=== PATIENT | male | born 2000 | race Caucasian/White ===

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

== ENCOUNTER → 2022-12-01 | Outpatient (CLI) | payer OTHER ==
--- NOTE | 2022-12-01 11:01 | XR ---
EXAMINATION TYPE: XR wrist complete LT DATE OF EXAM: 12/01/2022 COMPARISON: None HISTORY: Fall pain TECHNIQUE: 4 view left wrist FINDINGS: No acute fractures or dislocations are evident. Alignment is preserved. Soft tissues are un remarkable. Joint spaces are preserved. If there is pain at the anatomic snuff box, nuclear medicine bone scan could be performed for additio nal evaluation. Follow up exams can be performed 7-10 days from acute trauma for continued pain. IMPRESSION: 1. No acute osseous abnormality left wrist
--- NOTE | 2022-12-01 11:03 | XR ---
EXAMINATION TYPE: XR forearm LT DATE OF EXAM: 12/01/2022 COMPARISON: HISTORY: Fall, pain TECHNIQUE: 2 view left forearm FINDINGS: No acute fracture or dislocation is evident. Joint spaces appear preserved. Anterior fat pa d is normal. Soft tissues are unremarkable. Follow up exams can be performed in 7-10 days acute trauma for continued pain. IMPRESSION: 1. No acute osseous abnormality left forearm.
== END | disposition home or self-care (01) ==
LOC: RADXRMAIN 10:02
PROVIDERS: ATTEND Emergency Medicine
DX: M79.632 Pain in left forearm (principal); M25.532 Pain in left wrist

== ENCOUNTER 2023-10-17 16:16 | Emergency (ER) | payer BC, OTHER ==
[2023-10-17 16:27] VITALS: TEMP 98.2
--- NOTE | 2023-10-17 16:44 | ED ---
SOB HPI - General Chief Complaint: Shortness of Breath Stated Complaint: Covid +,Confusion,Dizziness Time Seen by Provider: 10/17/23 16:28 Source: patient, RN notes reviewed Mode of arrival: wheelchair Limitations: no limitations - History of Present Illness Initial Comments: This is a 23-year-old male who presents to the emergency department for concerns of COVID. States that he had a positive COVID test at home 2 days ago. Reports feeling short of breath, dizzy, and weak. Also states that he has body aches, a cough, and his hands feel numb. He is vaccinated against COVID, however he has not yet been infected with it. Denies any hx of asthma or smoking. Unsure of sick contacts. MD Complaint: shortness of breath - Related Data Previous Rx's Medication Instructions Recorded Albuterol Sulfate [Albuterol 1 - 2 puff PO Q4-6H PRN #8.5 gm 10/17/23 Sulfate Hfa] Benzonatate [Tessalon Perle] 200 mg PO TID PRN #30 capsule 10/17/23 Naproxen Sodium 550 mg PO BID PRN #30 tablet 10/17/23 Nirmatrelvir/Ritonavir [Paxlovid 1 pack PO BID #30 tab 10/17/23 300-100 mg Dose Pack] Ondansetron Odt [Zofran Odt] 4 mg PO Q8HR PRN #20 tab 10/17/23 Allergies Allergy/AdvReac Type Severity Reaction Status Date / Time No Known Allergies Allergy Verified 10/17/23 16:23 Review of Systems ROS Statement: Those systems with pertinent positive or pertinent negative responses have been documented in the HPI. ROS Other: All systems not noted in ROS Statement are negative. Past Medical History Additional Past Medical History / Comment(s): Suicidal in mar 2023 Past Surgical History: Hernia Repair Additional Past Surgical History / Comment(s): Hernia repair at 30 days old Past Psychological History: Depression Smoking Status: Never smoker Past Alcohol Use History: None Reported Past Drug Use History: None Reported General Exam Limitations: no limitations General appearance: alert, in no apparent distress Head exam: Present: atraumatic, normocephalic, normal inspection Respiratory exam: Present: normal lung sounds bilaterally. Absent: respiratory distress, wheezes, rales, rhonchi, stridor Cardiovascular Exam: Present: regular rate, normal rhythm, normal heart sounds. Absent: systolic murmur, diastolic murmur, rubs, gallop, clicks Neurological exam: Present: alert, oriented X3, CN II-XII intact Psychiatric exam: Present: normal affect, normal mood Skin exam: Present: warm, dry, intact, normal color. Absent: rash Course Vital Signs 10/17/23 10/17/23 16:24 18:59 Temperature 98.2 F Pulse Rate 68 70 Respiratory 22 16 Rate Blood Pressure 111/76 106/61 O2 Sat by Pulse 100 99 Oximetry Medical Decision Making - Medical Decision Making This is a 23 year old male who presents to the emergency department for dizziness, shortness of breath, and coughing. Was pt. sent in by a medical professional or institution? @ -No Did you speak to anyone other than the patient for history? @ -No Did you review nursing and triage notes? @ -Yes, and I agree, it is accurate with regards to the patient's symptoms. Were old charts reviewed? @ -No Differential Diagnosis? @ -Differential Dyspnea: Coronary syndrome, arrhythmia, tamponade, asthma, COPD, pulmonary embolism, pneumonia, pneumothorax, pulmonary effusion, anaphylaxis, diabetic ketoacidosis, flailed chest, pulmonary contusion, diaphragmatic rupture, anemia, neuromuscular, this is not meant to be an all-inclusive list. EKG interpreted by me (3pts min.)? @ -EKG interpreted by me demonstrating the following: Sinus rhythm. Ventricular rate 65 bpm, OH interval 146 ms, QRS duration 97 ms, QTc 399 ms. X-rays interpreted by me (1pt min.)? @ -Chest x-ray obtained, my interpretation identifies no localized consolidations or infiltrates. CT interpreted by me (1pt min.)? @ -Not obtained U/S interpreted by me (1pt. min.)? @ -Not obtained What testing was considered but not performed? (CT, X-rays, U/S, labs)? Why? @ -None What meds were considered but not given? Why? @ -None Did you discuss the management of the patient with other professionals? @ -No Did you reconcile home meds? @ -No Was smoking cessation discussed for >3mins.? @ -No Was critical care preformed (if so, how long)? @ -No Were there social determinants of health that impacted care today? How? (Homelessness, low income, unemployed, alcoholism, drug addiction, transportation, low edu. Level, literacy, decrease access to med. care, half-way, rehab)? @ -No Was there de-escalation of care discussed even if they declined? (Discuss DNR or withdrawal of care, Hospice)? @ -No What co-morbidities impacted this encounter? (DM, HTN, Smoking, COPD, CAD, Cancer, CVA, Hep., AIDS, mental health diagnosis, sleep apnea, morbid obesity)? @ -None Was patient admitted / discharged? @ -Discharged. Lab work demonstrates hypokalemia with a potassium of 3.2 and was otherwise unremarkable. Patient is positive for COVID-19. Chest x-ray reveals no acute process. 40 mEq of K-Dur administered. He was also given IV fluids, Toradol, Decadron, and Zofran with improvement in symptoms. Discussed the option of antiviral treatment with the patient and he requested to proceed. He was given a prescription for Paxlovid along with naproxen, Zofran, Tessalon Perles, and an albuterol inhaler for symptomatic management. Advised getting plenty of rest and drinking plenty of fluids. Patient discharged home in stable condition. Undiagnosed new problem with uncertain prognosis? @ -None Drug Therapy requiring intensive monitoring for toxicity (Heparin, Nitro, Insulin, Cardizem)? @ -None Were any procedures done? @ -None Diagnosis/symptom? @ -COVID-19, hypokalemia Acute, or Chronic, or Acute on Chronic? @ -Acute Uncomplicated (without systemic symptoms) or Complicated (systemic symptoms)? @ -Uncomplicated Side effects of treatment? @ -None Exacerbation, Progression, or Severe Exacerbation] @ -Not applicable Poses a threat to life or bodily function? @ -No Return precautions reviewed in depth, the patient is instructed to return to the emergency department with any new, worsening, or concerning symptoms. Patient verbalized understanding. This case was discussed in detail with the attending ED physician, Dr. Ambrocio. Presentation, findings, and treatment plan discussed in detail as well. - Lab Data Result diagrams: 10/17/23 16:35 10/17/23 16:35 Lab Results 10/17/23 10/17/23 10/17/23 Range/Units 16:35 16:35 16:35 WBC 5.2 (3.8-10.6) k/uL RBC 4.20 L (4.30-5.90) m/uL Hgb 13.5 (13.0-17.5) gm/dL Hct 38.9 L (39.0-53.0) % MCV 92.7 (80.0-100.0) fL MCH 32.2 (25.0-35.0) pg MCHC 34.7 (31.0-37.0) g/dL RDW 11.4 L (11.5-15.5) % Plt Count 240 (150-450) k/uL MPV 8.3 Neutrophils % 59 % Lymphocytes % 29 % Monocytes % 9 % Eosinophils % 1 % Basophils % 1 % Neutrophils # 3.0 (1.3-7.7) k/uL Lymphocytes # 1.5 (1.0-4.8) k/uL Monocytes # 0.4 (0-1.0) k/uL Eosinophils # 0.0 (0-0.7) k/uL Basophils # 0.0 (0-0.2) k/uL Sodium 139 (137-145) mmol/L Potassium 3.2 L (3.5-5.1) mmol/L Chloride 108 H (98-107) mmol/L Carbon Dioxide 17 L (22-30) mmol/L Anion Gap 14 mmol/L BUN 6 L (9-20) mg/dL Creatinine 0.58 L (0.66-1.25) mg/dL Est GFR (CKD-EPI)AfAm >90 (>60 ml/min/1.73 sqM) Est GFR (CKD-EPI)NonAf >90 (>60 ml/min/1.73 sqM) Glucose 102 H (74-99) mg/dL Calcium 9.9 (8.4-10.2) mg/dL Total Bilirubin 0.7 (0.2-1.3) mg/dL AST 27 (17-59) U/L ALT 24 (4-49) U/L Alkaline Phosphatase 63 (38-126) U/L Total Protein 7.4 (6.3-8.2) g/dL Albumin 4.6 (3.5-5.0) g/dL Influenza Type A (PCR) Not Detected (Not Detectd) Influenza Type B (PCR) Not Detected (Not Detectd) RSV (PCR) Not Detected (Not Detectd) SARS-CoV-2 (PCR) Detected A (Not Detectd) - Radiology Data Radiology results: report reviewed, image reviewed Disposition Clinical Impression: COVID-19, Hypokalemia Disposition: HOME SELF-CARE Instructions (If sedation given, give patient instructions): Coronavirus Disease 2019 (COVID-19), How to Recover from COVID-19 at Home (ED) Additional Instructions: Return to the emergency department with any new, worsening, or concerning symptoms. Take the Paxlovid as prescribed for 5 days. Take the naproxen twice daily with Tylenol as needed for pain and fevers. Take the Zofran up to every 8 hours as needed for nausea and vomiting. You can take the Tessalon Perles up to 3 times daily as needed for coughing. Make sure you get plenty of rest and drink plenty of fluids. Use the albuterol inhaler every 4-6 hours as needed for shortness of breath. Prescriptions: Albuterol Sulfate [Albuterol Sulfate Hfa] 1 - 2 puff PO Q4-6H PRN #8.5 gm PRN Reason: Shortness Of Breath Naproxen Sodium 550 mg PO BID PRN #30 tablet PRN Reason: Pain Nirmatrelvir/Ritonavir [Paxlovid 300-100 mg Dose Pack] 1 pack PO BID #30 tab Benzonatate [Tessalon Perle] 200 mg PO TID PRN #30 capsule PRN Reason: Cough Ondansetron Odt [Zofran Odt] 4 mg PO Q8HR PRN #20 tab PRN Reason: Nausea And Vomiting Is patient prescribed a controlled substance at d/c from ED?: No Referrals: None,Stated [Primary Care Provider] - 1-2 days Time of Disposition: 18:19
--- NOTE | 2023-10-17 17:34 | XR ---
Clinical EXAMINATION TYPE: XR chest 2V DATE OF EXAM: 10/17/2023 COMPARISON: NONE HISTORY: Chest pain TECHNIQUE: Frontal and lateral views of the chest are obtained. FINDINGS: There is no focal air space opacity. No evidence for pneumothorax. No pleural effusion. The cardiac silhouette size is within normal limits. The osseous structures are grossly intact. IMPRESSION: 1. No acute cardiopulmonary process.
[2023-10-17 17:37] LABS: Basophils % (A) 1 %; Eosinophils % (A) 1 %; HCT 38.9 % (39.0-53.0); HGB 13.5 gm/dL (13.0-17.5); Lymphocytes # (A) 1.5 k/uL (1.0-4.8); Lymphocytes % (A) 29 %; MCH 32.2 pg (25.0-35.0); MCHC 34.7 g/dL (31.0-37.0); MCV 92.7 fL (80.0-100.0); Mean Platelet Volume 8.3; Monocytes # (A) 0.4 k/uL (0-1.0); Monocytes % (A) 9 %; Neutrophils % (A) 59 %; Platelet Count 240 k/uL (150-450); RDW 11.4 % (11.5-15.5); WBC 5.2 k/uL (3.8-10.6)
[2023-10-17] MEDS: SODIUM CHLORIDE 0.9% 1,000 ML IV STA (17:43)
[2023-10-17] MEDS: KETOROLAC 15 MG/ML 1 ML VIAL IVP STA (17:45)
[2023-10-17] MEDS: DEXAMETHASONE SOD PHOSPHATE 10 MG/ML 1 ML VIAL IVP STA (17:46)
[2023-10-17] MEDS: ONDANSETRON 4 MG/2 ML VIAL IVP STA (17:52)
[2023-10-17 17:53] LABS: ALT 24 U/L (4-49); AST 27 U/L (17-59); African American GFR (CKD) >90 (>60 ml/min/1.73 sqM); Albumin 4.6 g/dL (3.5-5.0); Alkaline Phosphatase 63 U/L (38-126); Anion Gap 14 mmol/L; Blood Urea Nitrogen 6 mg/dL (9-20); Calcium 9.9 mg/dL (8.4-10.2); Carbon Dioxide 17 mmol/L (22-30); Chloride 108 mmol/L (98-107); Glucose 102 mg/dL (74-99); Non-African American GFR(CKD) >90 (>60 ml/min/1.73 sqM); Potassium 3.2 mmol/L (3.5-5.1); Sodium 139 mmol/L (137-145); Total Bilirubin 0.7 mg/dL (0.2-1.3); Total Protein 7.4 g/dL (6.3-8.2)
[2023-10-17] MEDS: POTASSIUM CHLORIDE ER 20 MEQ TAB.ER PO STA (18:06)
[2023-10-17 19:02] VITALS: BP 106/61; PULSE 70; RESP 16
== END 2023-10-17 19:11 | disposition home or self-care (01) ==
LOC: EC 16:16
DX: U07.1 COVID-19 (principal); E87.6 Hypokalemia
CPT/HCPCS: 36415; 93005; 80053; 85025; 87636; 71046; 99285; 96374; 96375 ×2; 96361; J1100; J2405; J1885

== ENCOUNTER 2024-08-01 14:48 | Emergency (ER) | payer BC ==
[2024-08-01 15:17] VITALS: BP 125/77; PULSE 71; RESP 20; TEMP 98
[2024-08-01 16:42] LABS: Amphetamine Screen,Urine Not Detected (NotDetected); Barbiturate Screen,Urine Not Detected (NotDetected); Benzodiazepines Screen,Urine Not Detected (NotDetected); Cocaine Screen,Urine Not Detected (NotDetected); Methadone Screen, Urine Not Detected (NotDetected); Opiate Screen,Urine Not Detected (NotDetected); Oxycodone Screen, Urine Not Detected (NotDetected); Phencyclidine Screen,Urine Not Detected (NotDetected); Tricyclic Antidepressant,Urine Not Detected (NotDetected); Urn Cannabinoid Scrn Not Detected (NotDetected)
== END 2024-08-01 18:11 | disposition left against medical advice (07) ==
LOC: EC 14:48
DX: R45.851 Suicidal ideations (principal); Z53.29 Procedure and treatment not carried out because of patient's decision for other reasons
CPT/HCPCS: 80306; 99499

== ENCOUNTER 2024-09-15 01:59 | Inpatient (IN) | payer BC ==
--- NOTE | 2024-09-15 02:09 | ED ---
Psych HPI - General Source: RN notes reviewed, old records reviewed Limitations: no limitations - History of Present Illness MD Complaint: suicidal ideation, feels depressed Associated Psychiatric Symptoms: racing thoughts Quality: constant, getting worse Improves With: medication Worsens With: none Treatments Prior to Arrival: placed on mental health hold <Cresencio Acevedo - Last Filed: 09/15/24 02:57> <Cresencio Cortes - Last Filed: 09/15/24 11:33> - General Stated Complaint: Petition Time Seen by Provider: 09/15/24 02:05 - History of Present Illness Initial Comments: This is a 24-year-old presents petitioned by police for psychiatric evaluation currently not homicidal or suicidal (Cresencio Acevedo) - Related Data Previous Rx's Medication Instructions Recorded Albuterol Sulfate [Albuterol 1 - 2 puff PO Q4-6H PRN #8.5 gm 10/17/23 Sulfate Hfa] Benzonatate [Tessalon Perle] 200 mg PO TID PRN #30 capsule 10/17/23 Naproxen Sodium 550 mg PO BID PRN #30 tablet 10/17/23 Nirmatrelvir/Ritonavir [Paxlovid 1 pack PO BID #30 tab 10/17/23 300-100 mg Dose Pack] Ondansetron Odt [Zofran Odt] 4 mg PO Q8HR PRN #20 tab 10/17/23 Allergies Allergy/AdvReac Type Severity Reaction Status Date / Time No Known Allergies Allergy Verified 09/15/24 02:06 Review of Systems ROS Other: All systems not noted in ROS Statement are negative. <Cresencio Acevedo - Last Filed: 09/15/24 02:57> ROS Other: All systems not noted in ROS Statement are negative. <Cresencio Cortes - Last Filed: 09/15/24 11:33> ROS Statement: Those systems with pertinent positive or pertinent negative responses have been documented in the HPI. Past Medical History Additional Past Medical History / Comment(s): Suicidal in mar 2023 Past Surgical History: Hernia Repair Additional Past Surgical History / Comment(s): Hernia repair at 30 days old Past Psychological History: Depression Smoking Status: Never smoker Past Alcohol Use History: None Reported Past Drug Use History: None Reported <Cresencio Acevedo - Last Filed: 09/15/24 02:57> General Exam General appearance: alert, in no apparent distress Head exam: Present: atraumatic, normocephalic, normal inspection Eye exam: Present: normal appearance, PERRL, EOMI. Absent: scleral icterus, conjunctival injection, periorbital swelling ENT exam: Present: normal exam, mucous membranes moist Neck exam: Present: normal inspection. Absent: tenderness, meningismus, lympha denopathy Respiratory exam: Present: normal lung sounds bilaterally. Absent: respiratory distress, wheezes, rales, rhonchi, stridor Cardiovascular Exam: Present: regular rate, normal rhythm, normal heart sounds. Absent: systolic murmur, diastolic murmur, rubs, gallop, clicks GI/Abdominal exam: Present: soft, normal bowel sounds. Absent: distended, tenderness, guarding, rebound, rigid Extremities exam: Present: normal inspection, full ROM, normal capillary refill. Absent: tenderness, pedal edema, joint swelling, calf tenderness Back exam: Present: normal inspection Neurological exam: Present: alert, oriented X3, CN II-XII intact Psychiatric exam: Present: normal affect, normal mood Skin exam: Present: warm, dry, intact, normal color. Absent: rash <Cresencio Acevedo - Last Filed: 09/15/24 02:57> Course <Cresencio Acevedo - Last Filed: 09/15/24 02:57> Vital Signs 09/15/24 02:06 Temperature 98.4 F Pulse Rate 79 Respiratory 18 Rate Blood Pressure 130/81 O2 Sat by Pulse 98 Oximetry - Reevaluation(s) Reevaluation #1: 09/15/24 02:58 Medical records reviewed (Cresencio Acevedo) Reevaluation #2: 09/15/24 02:58 Medically cleared for psychiatric evaluation (Cresencio Acevedo) Reevaluation #3: Differential Mental Health Depression, anxiety, bipolar, psychosis, schizophrenia, borderline personality, situational depression, adjustment disorder, behavioral disorder, brain tumor, malingering, substance abuse, encephalopathy, medication reaction, dementia, hypothyroidism, degenerative neurologic disorder, lupus.... This is not meant to be all-inclusive list (Cresencio Acevedo) Medical Decision Making <Cresencio Cortes - Last Filed: 09/15/24 11:33> - Medical Decision Making Was patient admitted / discharged? Hospital course, mention meds given and route, prescriptions, significant lab abnormalities, going to OR and other pertinent info. @ -Patient was signed out to me at 7 AM. Patient spoke with the EPS EPS spoke with the psychiatrist and it was determined that the patient should be admitted to the hospital. Patient was in agreement so patient will be admitted to the hospital. Undiagnosed new problem with uncertain prognosis? @ -No Drug Therapy requiring intensive monitoring for toxicity (Heparin, Nitro, Insulin, Cardizem)? @ -No Were any procedures done? @ -No Diagnosis/symptom? @ -Suicidal ideations Acute, or Chronic, or Acute on Chronic? @ -Acute Uncomplicated (without systemic symptoms) or Complicated (systemic symptoms)? @ -Complicated Side effects of treatment? @ -No Exacerbation, Progression, or Severe Exacerbation? @ -No Poses a threat to life or bodily function? How? (Chest pain, [place], [place], pneumonia, PE, COPD, DKA, ARF, appy, cholecystitis, CVA, Diverticulitis, Homicidal, Suicidal, threat to staff... and all critical care pts) @ -No (Cresencio Cortes) - Lab Data Lab Results 09/15/24 Range/Units 10:35 SARS-CoV-2 (PCR) Not Detected (Not Detectd) Disposition <Cresencio Acevedo - Last Filed: 09/15/24 02:57> Time of Disposition: 11:33 <Cresencio Cortes - Last Filed: 09/15/24 11:33> Clinical Impression: Depression, Suicidal ideation Disposition: ADMITTED IP TO THIS HOSP Referrals: None,Stated [Primary Care Provider] - 1-2 days
[2024-09-15] MEDS ORDERED: MAGNESIUM HYDROXIDE 2,400 MG/30 ML CUP PO PRN (11:41)
[2024-09-15] MEDS ORDERED: ACETAMINOPHEN TAB 325 MG TAB PO PRN (11:41)
[2024-09-15] MEDS ORDERED: OLANZapine 10 MG VIAL IM PRN (11:41)
[2024-09-15] MEDS ORDERED: IBUPROFEN 600 MG TAB PO PRN (11:41)
[2024-09-15] MEDS ORDERED: hydrOXYzine HCL 50 MG/ML 1 ML VIAL IM PRN (11:41)
[2024-09-15] MEDS ORDERED: MAG HYDROX/AL HYDROX/SIMETH 355 ML BOTTLE PO PRN (11:41)
[2024-09-15] MEDS ORDERED: OLANZapine 5 MG TAB PO PRN (11:41)
[2024-09-15] MEDS: NICOTINE 14MG/24HR PATCH TRANSDERM SCH (12:49)
--- NOTE | 2024-09-15 14:34 | P.PN ---
Subjective Progress Note Date: 09/15/24 Attempted to see patient on 09/15/24 2:30 PM, patient being evaluated by psychiatrist at the moment Patient is a 24-year-old male with past medical history of depression, suicidal ideation presented to the ER for psychiatric evaluation, was brought by police. Currently admitted to [facility], sound physicians consulted for medical management. Review of vitals, afebrile, normal heart rate, blood pressure. No blood work completed yet, COVID-negative. Objective - Vital Signs Vital signs: Vital Signs Temp 97.7 F 09/15/24 12:47 Pulse 68 09/15/24 12:47 Resp 16 09/15/24 12:47 BP 110/74 09/15/24 12:47 Pulse Ox 97 09/15/24 12:47 FiO2 Intake & Output 09/14/24 09/15/24 09/15/24 18:59 06:59 18:59 Weight 61.689 kg 56.699 kg
[2024-09-15] MEDS: ESCITALOPRAM 5 MG TAB PO SCH (15:14)
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
[2024-09-15] MEDS: ONDANSETRON ODT 4 MG TAB PO PRN (22:15)
[2024-09-16 08:10] LABS: Basophils # (A) 0.05 10*3/uL (0.00-0.10); Basophils % (A) 0.8 %; Eosinophils # (A) 0.05 10*3/uL (0.04-0.35); Eosinophils % (A) 0.8 %; HGB 14.4 g/dL (13.0-17.0); Lymphocytes # (A) 2.02 10*3/uL (0.90-5.00); Lymphocytes % (A) 30.5 %; MCH 32.3 pg (27.0-32.0); MCV 89.7 fL (80.0-97.0); Mean Platelet Volume 10.6 fL (9.5-12.2); Monocytes # (A) 0.42 10*3/uL (0.20-1.00); Monocytes % (A) 6.3 %; Neutrophils # (A) 4.06 10*3/uL (1.80-7.70); Neutrophils % (A) 61.3 %; Platelet Count 315 10*3/uL (140-440); RBC 4.46 10*6/uL (4.40-5.60); RDW 10.7 % (11.5-14.5); WBC 6.62 10*3/uL (4.50-10.00)
[2024-09-16 08:23] LABS: ALT 23 U/L (4-49); AST 21 U/L (17-59); African American GFR (CKD) >90 (>60 ml/min/1.73 sqM); Alkaline Phosphatase 74 U/L (38-126); Anion Gap 11 mmol/L; Blood Urea Nitrogen 7 mg/dL (9-20); Carbon Dioxide 24 mmol/L (22-30); Chloride 103 mmol/L (98-107); Glucose 121 mg/dL (74-99); Non-African American GFR(CKD) >90 (>60 ml/min/1.73 sqM); Potassium 3.8 mmol/L (3.5-5.1); Sodium 138 mmol/L (137-145); Total Bilirubin 0.9 mg/dL (0.2-1.3); Total Protein 7.7 g/dL (6.3-8.2)
--- NOTE | 2024-09-16 12:14 | P.PN ---
Progress Note - Text Progress Note Date: 09/16/24 Interval History: Patient was seen today for psychiatric follow up. Patient was in the [facility]. Agreeable to speak in the office today. Patient claims that she has been triggered by mainly her mother, claims that she has been having mood instability. States that he is mainly related to her mother in arguments. Claims that several stressors regarding her transition to being a female. Claims that she is taking estrogen injections once a week. She is claiming that her anxiety is a bit better than yesterday and mood is improving. Claims that she has tried to go to group participate, eating well. Claims that she sleeps fairly at nighttime. She denies any auditory or visual hallucinations and denies any suicidal or homicidal ideations intent or plan. Not reporting any side effects. MENTAL STATUS EXAM: General Appearance: Patient appears to be stated age is alert, directable, and attempts to cooperate. Patient appears to have fair hygiene and grooming. She has long hair that was in a ponytail. Behavior: Patient is seated without any agitated behavior. Cooperative today. Speech: Patient's speech is fluent and nonpressured. Mood/Affect: Patient reports their mood is " a bit better", affect is congruent and constricted. Suicidality/Homicidality: Patient denies having any homicidal ideation intent or plan. Denies any suicidal ideations intent or plan Perceptions: Patient denies any visual hallucinations and denies any auditory hallucinations Though content/process: There is no evidence of any delusional thought content and thought process is linear and goal-directed. Improving mildly Memory and concentration: AOX3, grossly intact for the purposes of this session Judgment and insight: poor, improving mildly IMPRESSIONS: Major depressive disorder, recurrent, moderate Anxiety disorder, unspecified Rule out cluster B trait PLAN: -Patient is admitted under voluntary status to MHU for stabilization of psychiatric symptoms and safety. Patient has signed adult voluntary form and medication consent and is placed in patient's chart. -Medications : Increase Lexapro 10 mg daily for mood/anxiety. Managing Cognitive Engineer spoke with patient about the risks versus benefits of a mood stabilizer such as lithium to help mood swings however the patient wanted to hold off on this for now. - Hydroxyzine and Zyprexa PRN for agitation/aggression -NRT -nicotine patch -SW on board for discharge planning. Encourage patient to participate in groups to work on coping skills. Hopeful for discharge Monday the patient is improving.
[2024-09-16 15:19] LABS: Chol/HDL Ratio 2.85 Ratio; LDL Cholesterol,Calculated 108.5 mg/dL (0.0-131.0); VLDL Calculation 18.06 mg/dL (5.00-40.00)
--- NOTE | 2024-09-16 17:20 | P.MDCNMH ---
History of Present Illness H&P Date: 09/16/24 History of Presenting Illness: Patient is a 24-year-old genetically born male undergoing hormone therapy for transition to female over the past 3 years. She goes by the name of Paulina. She reports a past medical history of hernia repair as an and previous orthopedic surgery. She reports a past medical history of depression, anxiety, and previous suicide attempt. She is currently admitted to inpatient psychiatric facility after expressing suicidal ideations. We were consulted for medical evaluation and completion of medical H&P. Patient seen and fully evaluated in the mental health unit. Patient ambulatory with a steady gait. Currently free from any complaints. Patient reports she is currently hospitalized in mental health unit after having a fall out and an argument with her mother and left the house to be alone. She reports driving to a parking lot and texting her sister and expressing wanting to end her life and she called the police who brought her to the emergency department for evaluation. She reports she was previously having some chest pain upon taking a deep breath which was reproducible upon taking a deep breath, but states that resolved and currently denies having any complaints including headache, lightheadedness, dizziness, chest pain, palpitations, shortness of breath, abdominal pain, nausea, vomiting, or experiencing any difficulties with or changes in urinary or bowel function. Patient reports an okay appetite. She denies smoking or vaping, denies any drug use, and reports very rare alcohol use. Patient denies having any visual, auditory, or tactile hallucinations. Labs reviewed. CBC unremarkable. BMP normal findings. Blood glucose 121. Hemoglobin A1c 4.9%. Calcium 10.0. Liver profile normal findings. Lipid profile unremarkable. TSH 0.966. COVID PCR negative. Vital signs reviewed. Blood pressure 127/79, heart rate 79, respiratory rate 16, temp 97.4 F, and SpO2 of 98% on room air Review of systems: Pertinent positives and negatives as discussed in HPI, a complete review of systems was performed and all other systems are negative. Physical exam: Vital signs reviewed and stable. General: Nontoxic, no distress and appears stated age. Derm: Skin warm and dry, normal coloration for ethnicity. Head: Atraumatic, normocephalic and symmetric. Eyes: EOM's intact, no lid lag, and anicteric sclera Mouth: no lip lesions, mucus membranes moist Cardiovascular: regular rate and rhythm with normal S1S2, no murmur, positive posterior tibial pulses bilaterally, and cap refill < 2 seconds. Lungs: Respirations even, regular, and unlabored on room air. Lungs CTA bilaterally, no rhonchi, no rales, no wheezing, and no accessory muscle usage. Abdominal: soft, nontender to palpation, no guarding, no appreciable organomegaly Ext: ROM intact. No gross muscle atrophy, no edema, no contractures Neuro: Speech clear, face symmetrical and CN II-XII grossly intact with no noted focal neuro deficits Psych: Alert and oriented to person, place, time, and situation. Appropriate and pleasant affect. Assessment and Plan of Care: Transgender, undergoing hormone therapy for transition to female - Continue estradiol valerate 4 mg subcu weekly on Mondays Depression and anxiety Suicidal ideations Maintain safe and supportive care. Maintain suicide precautions. Management per primary admitting psychiatry team. Data and imaging reviewed: As stated above in HPI Thank you for allowing us to participate in the care of this pleasant patient. Do not hesitate to contact us with questions. Someone can be reached from the [facility] hospitalist group all hours of the day at [phone] or via [place]. Patient was seen independently by Nurse Practitioner. This document was prepared using [employer] dictation software. Please allow for errors in plaster patternmaker while rare they do occur. Jacob Mueller NP rendered care for this patient independently, reviewed the findings and plan as documented in the note above and agree with plan. I did not physically speak with or examine the patient on this date. Past Medical History Past Medical History: No Reported History Additional Past Medical History / Comment(s): Suicidal in mar 2023 History of Any Multi-Drug Resistant Organisms: None Reported Past Surgical History: Hernia Repair Additional Past Surgical History / Comment(s): Hernia repair at 30 days old Past Anesthesia/Blood Transfusion Reactions: No Reported Reaction Past Psychological History: Depression Smoking Status: Never smoker Past Alcohol Use History: None Reported Past Drug Use History: None Reported Medications and Allergies Home Medications Medication Instructions Recorded Confirmed Type Estradiol Valaerate 20mg/Ml Oil 4 mg SQ MO 09/15/24 09/15/24 History Allergies Allergy/AdvReac Type Severity Reaction Status Date / Time unknown antibiotic Allergy Unknown Uncoded 09/15/24 11:54 Physical Exam Vitals: Vital Signs Temp Pulse BP Pulse Ox 09/16/24 14:20 79 127/79 98 09/16/24 09:00 97.4 F L 102 H 114/73 97 09/15/24 21:33 98.1 F 71 116/73 97 Cranial Nerve Examination - Cranial Nerves Cranial Nerve II- Optic: Intact Cranial Nerve III- Oculomotor: Intact Cranial Nerve IV- Trochlear: Intact Cranial Nerve V- Trigeminal: Intact Cranial Nerve - Abducens: Intact Cranial Nerve VII- Facial: Intact Cranial Nerve VIII- Auditory: Intact Cranial Nerve IX- Glossopharyngeal: Intact Cranial Nerve X- Vagus: Intact Cranial Nerve XI- Accessory: Intact Cranial Nerve XII- Hypoglossal: Intact Results CBC & Chem 7: 09/16/24 07:38 09/16/24 07:38 Labs: Abnormal Lab Results - Last 24 Hours (Table) 09/16/24 09/16/24 Range/Units 07:38 07:38 MCH 32.3 H (27.0-32.0) pg BUN 7 L (9-20) mg/dL Glucose 121 H (74-99) mg/dL HDL Cholesterol 68.40 H (40.00-60.00) mg/dL
[2024-09-17] MEDS: ESCITALOPRAM 10 MG TAB PO SCH (08:39)
--- NOTE | 2024-09-17 11:21 | P.PN ---
Progress Note - Text Progress Note Date: 09/17/24 Interval History: Patient was seen today for psychiatric follow up. Patient was in the [facility]. Agreeable to speak in the office today. Patient claims that she has been doing better since being on the unit, claims that she took the higher dose of Lexapro today and tolerating it well so far. States that she still has been trying to avoid talking to her mother as much as possible due to being "triggered". States that she has been showering attending groups, up for meals. She claims that she slept fairly last night. She denies any auditory or visual hallucinations and denies any suicidal or homicidal ideations intent or plan. Not reporting any side effects. MENTAL STATUS EXAM: General Appearance: Patient appears to be stated age is alert, directable, and attempts to cooperate. Patient appears to have fair hygiene and grooming. She has long hair that was in a ponytail. Behavior: Patient is seated without any agitated behavior. Cooperative today Speech: Patient's speech is fluent and nonpressured. Mood/Affect: Patient reports their mood is "ok", affect is congruent and constricted. improving mildly Suicidality/Homicidality: Patient denies having any homicidal ideation intent or plan. Denies any suicidal ideations intent or plan Perceptions: Patient denies any visual hallucinations and denies any auditory hallucinations Though content/process: There is no evidence of any delusional thought content and thought process is linear and goal-directed. Improving mildly Memory and concentration: AOX3, grossly intact for the purposes of this session Judgment and insight: improving mildly IMPRESSIONS: Major depressive disorder, recurrent, moderate Anxiety disorder, unspecified Rule out cluster B trait PLAN: -Patient is admitted under voluntary status to MHU for stabilization of psychiatric symptoms and safety. Patient has signed adult voluntary form and [facility] consent and is placed in patient's chart. -Medications : Lexapro 10 mg daily for mood/anxiety - Hydroxyzine and Zyprexa PRN for agitation/aggression -NRT -nicotine patch -SW on board for discharge planning. Encourage patient to participate in groups to work on coping skills. Hopeful for discharge tomorrow if the patient is improving.
[2024-09-17] MEDS: hydrOXYzine HCL 25 MG TAB PO PRN (15:05)
[2024-09-18 09:26] VITALS: BP 112/76; PULSE 81; RESP 18; TEMP 97.6
--- NOTE | 2024-09-18 11:20 | P.DS ---
Providers Date of admission: 09/15/24 11:36 Expected date of discharge: 09/18/24 Attending physician: Shorty Crow MD Consults: 09/15/24 11:41 Consult Physician Routine Consulting Provider: Buffy Hampton Consult Reason/Comments: H and P Do you want consulting provider notified?: Yes Primary care physician: Stated None - Discharge Diagnosis(es) (1) Major depressive disorder, recurrent episode Current Visit: Yes Status: Acute Priority: High (2) Anxiety disorder Current Visit: Yes Status: Acute Priority: Medium Hospital Course: Admission HPI: Admission note was completed by Dr Delacruz "patient is a 24 years old presented by police for psychiatric evaluation for suicidal ideation. Patient presented to the hospital for evaluation after making suicidal statements. The patient texted her family saying " bridge or hospital." She reported that she was debating killing herself or checking into the hospital. She had thoughts of jumping off the bridge to kill herself. Patient states that she had a fight with her mother and mom says negative things about her being a transgender. Patient feels that mom is not supportive. Reports she currently lives with her parents and reported that her father does not take side and he is not supportive to her. Upon evaluation in the unit the patient was in her room, was redirectable and agreed to speak with the speech writer in the office. Reported that she would like to be called "Paulina" and she was pronunciation she/her. She states that she had an argument with mom last night, and was feeling overwhelmed, she left the house last night, and did not know where to go, states that she stayed in the hospital parking lot, and called his sister who called the police. States that his mother is not supportive, and she is always blames her on her previous suicidal thoughts. States that a month ago, she had suicidal thoughts however never acted on it. She admitted to feeling down, sad, depressed, hopeless, helpless, since she was 19 yo, states that it has fluctuating lately. She rated depression at 3/10, compared to 7/10 yesterday. She denied any current SI/HI or self harm, states that he had one episode of self harm in the past about 2 yrs ago. States that he has been sleeping too much, admitted to on and off appetite, lost 6 ib over the last month, eat one to 2 meals a day, states that it was not intentional. She admitted to anxiety around crowed of people, he rated anxiety at 1/10. States that she had some episode of being awake for 24 hours at time, reported that happened couple of week ago, denied any flight of ideas racing thoughts and increased in goal directed behavior. Patient denies any suicidal or homicidal ideations intent or plan. She was able to elaborate on the text massage he sent to his sister, and reported that he regret that, states that it was an impulsive move. Patient admits to using cannabis once a month, denied using any alcohol, tobacco or any other substances. States that he has been struggling with finances." Hospital course: Upon admission to the unit patient was directable and agreeable to commence treatment and signed adult voluntary form. Patient was initially depressed, anxious however with time and treatment patient got along well with other patients on the unit and followed unit protocol. Patient was compliant with the medications and denied any side effects throughout hospital course. Patient was started on Lexapro increased to a dose of 10 mg daily for mood/anxiety. Patient spoke of her stressors and engaged in therapy both group/activity therapy. Patient was also seen by medical team for history and physical exam. Throughout the course of the hospitalization patient gradually improved with regards to mood, anxiety, sleep and became more future oriented with improved insight and judgment. On the day of discharge patient denied any suicidal or homicidal ideations intent or plan denied any auditory or visual hallucinations. Patient endorsed wanting to live for their health and family. The patient denied any access to guns or weapons. Patient denied any paranoia and did not endorse any delusions. Patient does not have a significant history of substance abuse and was counseled on abstaining from all substances including alcohol and marijuana. Patient was also counseled on the medications and need for regular compliance and was encouraged to follow-up with their outpatient appointment for mental health and also for primary care. Prior to discharge a family meeting will be arranged by social media project manager to answer any questions and ensure safety upon discharge incuding making sure that guns/weapons are either removed from the home or locked away. Mental status exam: General Appearance: Patient appears to be have long hair, stated age is alert, pleasant, and cooperative. Patient is in no acute distress and has improved hygiene and grooming Behavior: Patient is calmly seated without any agitated behavior. Speech: Patient's speech is fluent and nonpressured. Mood/Affect: Patient reports their mood is "better", affect is congruent and euthymic. Suicidality/Homicidality: Patient denies having any suicidal or homicidal meka ation intent or plan. Perceptions: Patient denies any auditory or visual hallucinations. Though content/process: There is no evidence of any delusional thought content and thought process is linear and goal-directed. More future oriented Memory and concentration: AOX3, grossly intact for the purposes of this session. Can spell "WORLD" backwards correctly. Judgment and insight: improved with guarded prognosis Impression: Major depressive disorder, recurrent episode Anxiety disorder unspecified Plan: -Continue with discharge today as patient has improved and stabilized psychiatrically and is not currently an imminent threat to themself and/or others. -Continue medications: Lexapro 10 mg daily for mood/anxiety -Patient was counseled on the need for medication compliance and appropriate follow-up at mental health and also primary care for medical issues. Patient verbalized understanding and agreed. -Social work to arrange for and conduct family meeting to ensure safety upon discharge and answer any questions/concerns. also to ensure safe home environment that guns/weapons are either removed from the home or locked away. Social work also to arrange for patients follow up appointments with [facility] for psychiatric care along with follow up with primary care provider. -Patient counseled on abstaining from recreational drugs and marijuana and alcohol. Was informed/educated on the adverse effects on their physical and mental health. Patient verbally agreed and understood. -Patient was instructed to return to the hospital or seek immediate medical care if their psychiatric or medical symptoms do worsen or reoccur. Allergies Allergy/AdvReac Type Severity Reaction Status Date / Time unknown antibiotic Allergy Unknown Uncoded 09/15/24 11:54 Laboratory Results WBC 6.62 10*3/uL (4.50-10.00) 09/16/24 07:38 RBC 4.46 10*6/uL (4.40-5.60) 09/16/24 07:38 Hgb 14.4 g/dL (13.0-17.0) 09/16/24 07:38 Hct 40.0 % (39.6-50.0) 09/16/24 07:38 MCV 89.7 fL (80.0-97.0) 09/16/24 07:38 MCH 32.3 pg (27.0-32.0) H 09/16/24 07:38 MCHC 36.0 g/dL (32.0-37.0) 09/16/24 07:38 Plt Count 315 10*3/uL (140-440) 09/16/24 07:38 MPV 10.6 fL (9.5-12.2) 09/16/24 07:38 Immature Gran % (Auto) 0.3 % 09/16/24 07:38 Neutrophils % 61.3 % 09/16/24 07:38 Lymphocytes % 30.5 % 09/16/24 07:38 Monocytes % 6.3 % 09/16/24 07:38 Eosinophils % 0.8 % 09/16/24 07:38 Basophils % 0.8 % 09/16/24 07:38 Immature Gran # 0.02 10*3/uL (0.00-0.04) 09/16/24 07:38 Neutrophils # 4.06 10*3/uL (1.80-7.70) 09/16/24 07:38 Lymphocytes # 2.02 10*3/uL (0.90-5.00) 09/16/24 07:38 Monocytes # 0.42 10*3/uL (0.20-1.00) 09/16/24 07:38 Eosinophils # 0.05 10*3/uL (0.04-0.35) 09/16/24 07:38 Basophils # 0.05 10*3/uL (0.00-0.10) 09/16/24 07:38 Sodium 138 mmol/L (137-145) 09/16/24 07:38 Potassium 3.8 mmol/L (3.5-5.1) 09/16/24 07:38 Chloride 103 mmol/L (98-107) 09/16/24 07:38 Carbon Dioxide 24 mmol/L (22-30) 09/16/24 07:38 Anion Gap 11 mmol/L 09/16/24 07:38 BUN 7 mg/dL (9-20) L 09/16/24 07:38 Creatinine 0.71 mg/dL (0.66-1.25) 09/16/24 07:38 Est GFR (CKD-EPI)AfAm >90 (>60 ml/min/1.73 sqM) 09/16/24 07:38 Est GFR (CKD-EPI)NonAf >90 (>60 ml/min/1.73 sqM) 09/16/24 07:38 Glucose 121 mg/dL (74-99) H 09/16/24 07:[address] Glu mg/dL 94 mg/dL 09/16/24 07:38 Hemoglobin A1c 4.9 % (<=6.0) 09/16/24 07:38 Calcium 10.0 mg/dL (8.4-10.2) 09/16/24 07:38 Total Bilirubin 0.9 mg/dL (0.2-1.3) 09/16/24 07:38 AST 21 U/L (17-59) 09/16/24 07:38 ALT 23 U/L (4-49) 09/16/24 07:38 Alkaline Phosphatase 74 U/L (38-126) 09/16/24 07:38 Total Protein 7.7 g/dL (6.3-8.2) 09/16/24 07:38 Albumin 5.0 g/dL (3.5-5.0) 09/16/24 07:38 Triglycerides 90.30 mg/dL (0.00-149.00) 09/16/24 07:38 Cholesterol 195.00 mg/dL (0.00-200.00) 09/16/24 07:38 LDL Cholesterol, Calc 108.5 mg/dL (0.0-131.0) 09/16/24 07:38 VLDL Cholesterol, Calc 18.06 mg/dL (5.00-40.00) 09/16/24 07:38 HDL Cholesterol 68.40 mg/dL (40.00-60.00) H 09/16/24 07:38 Cholesterol/HDL Ratio 2.85 Ratio 09/16/24 07:38 TSH 0.966 mIU/L (0.465-4.680) 09/16/24 07:38 SARS-CoV-2 (PCR) Not Detected (Not Detectd) 09/15/24 10:35 Vital Signs Temp 97.6 F 09/18/24 09:00 Pulse 81 09/18/24 09:00 Resp 18 09/18/24 09:00 BP 112/76 09/18/24 09:00 Pulse Ox 98 09/18/24 09:00 FiO2 Patient Condition at Discharge: Stable Plan - Discharge Summary Discharge Rx Participant: No New Discharge Prescriptions: New Escitalopram [Lexapro] 10 mg PO DAILY 30 Days #30 tab Ibuprofen [Motrin] 600 mg PO Q6HR PRN tab PRN Reason: Moderate Pain (Scale 4 To 6) Continue Estradiol Valaerate 20mg/Ml Oil 4 mg SQ MO Discharge Medication List Estradiol Valaerate 20mg/Ml Oil 4 mg SQ MO 09/15/24 [History] Escitalopram [Lexapro] 10 mg PO DAILY 30 Days #30 tab 09/18/24 [Rx] Ibuprofen [Motrin] 600 mg PO Q6HR PRN tab 09/18/24 [Rx] Follow up Appointment(s)/Referral(s): [place] [facility] Int, Med [Other] - 1 Week [place] [Outside] - 09/23/24 2:00 pm (Elvira 09/23 @ 14:00) Patient Instructions/Handouts: Depression (DC), Anxiety (GEN) Activity/Diet/Wound Care/Special Instructions: Avoid the use of street drugs and alcohol. Take all medications as prescribed. When you are in need of refills on your medications, please contact your medical provider and/or outpatient psychiatrist/provider to have this done. Please go to your scheduled outpatient appointment for aftercare treatment. If symptoms return or become worse, call the crisis line at and/or go to the nearest emergency room for evaluation. National Suicide Hotline [facility] [facility] confidentiality statement: "The information contained in this communication, including attachments, is confidential, may be privileged, and is intended only for the use of the named recipient(s). Unauthorized use, disclosure, forwarding or copying is strictly prohibited and may be unlawful. If you have received this communication in error, please notify me IMMEDIATELY at the phone number or pager listed above. Discharge Disposition: HOME SELF-CARE
== END 2024-09-18 11:57 | disposition home or self-care (01) | DRG 885 ==
LOC: EC 01:59 → 3MHU 11:36
PROVIDERS: ADMIT Psychiatry & Neurology Psychiatry; ATTEND Psychiatry & Neurology Psychiatry
DX: F33.1 Major depressive disorder, recurrent, moderate (principal); R45.851 Suicidal ideations; F41.9 Anxiety disorder, unspecified; Z11.52 Encounter for screening for COVID-19; F64.0 Transsexualism; Z56.0 Unemployment, unspecified; Z79.899 Other long term (current) drug therapy; Z91.51 Personal history of suicidal behavior; Z87.19 Personal history of other diseases of the digestive system
CPT/HCPCS: 80053; 80061; 82075; 83036; 84443; 85025; 87635; 99285